=== PATIENT | female | born 1950 | race Caucasian/White ===

== ENCOUNTER 2018-05-20 13:15 | Inpatient (IN) | payer MEDICARE ==
[~2018-05-20] VITALS: Ht 160 cm; Wt 70.4 kg
[2018-05-20] MEDS ORDERED: LIDOCAINE VISCOUS 2% UD 15 ML UDC MM ONE (14:00)
[2018-05-20 14:05] LABS: BASOPHILS # (AUTO) 0.2 /CMM (0.0-0.2); BASOPHILS % (AUTO) 1.3 % (0.0-2.0); EOSINOPHILS % (AUTO) 0.3 % (0.0-6.0); HEMATOCRIT 42 % (33-45); HEMOGLOBIN 13.9 g/dL (11.5-14.8); LYMPHOCYTES # (AUTO) 1.5 /CMM (0.8-4.8); LYMPHOCYTES % (AUTO) 11.4 % (20.0-44.0); MEAN CORPUSCULAR HGB CONC 33 g/dl (31.0-36.0); MEAN CORPUSCULAR VOLUME 83 fL (82-100); MONOCYTES # (AUTO) 0.8 /CMM (0.1-1.30); MONOCYTES % (AUTO) 6.2 % (2.0-12.0); NEUTROPHILS # (AUTO) 10.4 /CMM (1.8-8.9); NEUTROPHILS % (AUTO) 80.8 % (43.0-81.0); PLATELET COUNT (AUTO) 349 /CMM (150-450); RED BLOOD CELL COUNT(AUTO) 5.11 MIL/uL (4.0-5.2); WHITE BLOOD COUNT (AUTO) 12.9 K/uL (4.3-11.0)
[2018-05-20] MEDS ORDERED: LIDOCAINE VISCOUS 2% UD 15 ML UDC ONE (14:13)
[2018-05-20 14:15] LABS: CALCIUM, SERUM 9.8 mg/dL (8.5-10.1); CREATININE 0.6 mg/dL (0.6-1.3); POTASSIUM 3.9 mmol/L (3.5-5.1)
[2018-05-20 14:20] LABS: ALBUMIN 3.7 g/dL (3.4-5.0); BILIRUBIN,DIRECT 0.2 mg/dL (0.0-0.2); BILIRUBIN,TOTAL 0.5 mg/dL (0.2-1.0); TOTAL PROTEIN, SERUM 7.6 g/dL (6.4-8.2)
[2018-05-20] MEDS ORDERED: AMIN30LI27 GT (16:18)
[2018-05-20] MEDS ORDERED: METO-295 GT (16:18)
[2018-05-20] MEDS ORDERED: SCOP1PAT17 TD (16:18)
[2018-05-20] MEDS ORDERED: CHOL4PAC4 GT (16:18)
[2018-05-20] MEDS ORDERED: LACT-96 GT (16:18)
[2018-05-20] MEDS ORDERED: LACT1CAP7 GT (16:18)
[2018-05-20] MEDS ORDERED: BISA10SU61 RC (16:18)
[2018-05-20] MEDS ORDERED: LEVE100S GT (16:18)
[2018-05-20] MEDS ORDERED: ALBU2.5V38 IH ×2 (16:18)
[2018-05-20] MEDS ORDERED: ACET325T53 GT ×2 (16:18)
[2018-05-20] MEDS ORDERED: MAGN400O6 GT (16:18)
[2018-05-20] MEDS ORDERED: DEXT15DR6 EACHEYE (16:18)
[2018-05-20] MEDS ORDERED: CRAN3875 GT (16:18)
[2018-05-20] MEDS ORDERED: ACET-73 GT (16:18)
[2018-05-20] MEDS ORDERED: ASCO500T9 GT (16:18)
[2018-05-20] MEDS ORDERED: NA P133E RC (16:18)
[2018-05-20] MEDS ORDERED: CHLO473M3 MM (16:18)
[2018-05-20] MEDS ORDERED: IPRA0.2S9 IH ×2 (16:18)
[2018-05-20] MEDS ORDERED: LANS30CA54 GT (16:18)
[2018-05-20] MEDS ORDERED: SENN-168 GT (16:18)
[2018-05-20] MEDS ORDERED: MULT1TAB73 GT (16:18)
[2018-05-20] MEDS ORDERED: IV NS 0.9% 1,000 ML BAG IV PRN (16:30)
[2018-05-20 17:00] VITALS: BP 120/73
[2018-05-20] MEDS ORDERED: SCOPOLAMINE HBR 1 EA PATCH.TD72 TD SCH (18:30)
[2018-05-20] MEDS ORDERED: IPRATROPIUM NEB FS 0.5 MG/2.5 ML AMPUL.NEB IH PRN (18:30)
[2018-05-20] MEDS ORDERED: ACETAMINOPHEN LIQUID 325 MG/10.1 ML UDC GT PRN ×2 (18:30)
[2018-05-20] MEDS ORDERED: NA PHOS,M-B/NA PHOS,DI-BA 1 EA ENEMA RC PRN (18:30)
[2018-05-20] MEDS ORDERED: MAGNESIUM HYDROXIDE 30 ML UDC GT PRN (18:30)
[2018-05-20] MEDS ORDERED: METOCLOPRAMIDE HCL 10 MG TABLET GT PRN (18:30)
[2018-05-20] MEDS ORDERED: BISACODYL SUPP (10 MG) 10 MG/SUPP.RECT SUPP.RECT RC PRN (18:30)
[2018-05-20] MEDS: ALBUTEROL FS 2.5 MG/0.5 ML VIAL.NEB NEB SCH (19:30)
[2018-05-20] MEDS ORDERED: ALBUTEROL FS 2.5 MG/0.5 ML VIAL.NEB NEB PRN (19:30)
[2018-05-20] MEDS: IPRATROPIUM NEB FS 0.5 MG/2.5 ML AMPUL.NEB IH SCH (19:30)
[2018-05-20 20:00] VITALS: BP 114/84
[2018-05-20] MEDS ORDERED: IV NS 0.9% 1,000 ML BAG IV SCH (20:00)
[2018-05-20] MEDS: POLYVINYL ALCOHOL 15 ML BOTTLE EACHEYE SCH ×2 (20:09→22:22)
[2018-05-20] MEDS ORDERED: LIDOCAINE VISCOUS 2% UD 15 ML UDC MM SCH (21:00)
[2018-05-20] MEDS: SENNOSIDES 8.6 MG TABLET GT SCH (22:00)
[2018-05-20] MEDS: CHOLESTYRAMINE/ASPARTAME 4 G/PKT PACKET GT SCH (22:23)
[2018-05-20] MEDS: CHLORHEXIDINE GLUCONATE 15 ML UDC MM SCH (22:23)
[2018-05-20] MEDS: LIDOCAINE VISCOUS 2% UD 15 ML UDC MM SCH (22:23)
[2018-05-21] VITALS: BP 110/77
[2018-05-21] MEDS: IPRATROPIUM NEB FS 0.5 MG/2.5 ML AMPUL.NEB IH SCH ×4 (01:30→19:30)
[2018-05-21] MEDS: ALBUTEROL FS 2.5 MG/0.5 ML VIAL.NEB NEB SCH ×4 (01:30→19:30)
[2018-05-21] MEDS: IV NS 0.9% 1,000 ML IV PRN ×2 (03:49→17:11)
[2018-05-21 08:00] VITALS: BP 107/63
[2018-05-21] MEDS: LIDOCAINE VISCOUS 2% UD 15 ML UDC MM SCH ×4 (08:47→21:57)
[2018-05-21] MEDS: PANTOPRAZOLE 40 MG/PACK PACK GT SCH (08:47)
[2018-05-21] MEDS: LACTOBACILLUS RHAMNOSUS GG 1 EACH CAP.SPRINK PO SCH (08:47)
[2018-05-21] MEDS: LEVETIRACETAM SOL (5 ML) 100 MG/ML UDC GT SCH (08:47)
[2018-05-21] MEDS: CHLORHEXIDINE GLUCONATE 15 ML UDC MM SCH ×2 (08:47→21:57)
[2018-05-21] MEDS: ASCORBIC ACID 500 MG TABLET GT SCH (08:47)
[2018-05-21] MEDS: MULTIVIT W/MINERALS 1 TAB TABLET PO SCH (08:47)
[2018-05-21] MEDS: PROSOURCE / PROSTAT (PYXIS) 30 ML UDC GT SCH ×2 (08:52→17:09)
[2018-05-21] MEDS: CHOLESTYRAMINE/ASPARTAME 4 G/PKT PACKET GT SCH ×2 (08:53→21:57)
[2018-05-21] MEDS: POLYVINYL ALCOHOL 15 ML BOTTLE EACHEYE SCH ×4 (08:53→21:57)
[2018-05-21] MEDS: ENSURE ENLIVE 237 ML LIQUID (VANILLA) PO SCH ×3 (08:53→17:09)
[2018-05-21] MEDS: [UNRECOGNIZED DRUG - OTHER] DT SCH ×3 (13:19→21:56)
[2018-05-21 13:27] LABS: BASOPHILS % (AUTO) 0.3 % (0.0-2.0); EOSINOPHILS % (AUTO) 0.4 % (0.0-6.0); HEMATOCRIT 38 % (33-45); HEMOGLOBIN 12.4 g/dL (11.5-14.8); LYMPHOCYTES # (AUTO) 1.7 /CMM (0.8-4.8); LYMPHOCYTES % (AUTO) 22.4 % (20.0-44.0); MEAN CORPUSCULAR HGB CONC 33 g/dl (31.0-36.0); MEAN CORPUSCULAR VOLUME 84 fL (82-100); MONOCYTES # (AUTO) 0.5 /CMM (0.1-1.30); MONOCYTES % (AUTO) 6.3 % (2.0-12.0); NEUTROPHILS # (AUTO) 5.5 /CMM (1.8-8.9); NEUTROPHILS % (AUTO) 70.6 % (43.0-81.0); PLATELET COUNT (AUTO) 327 /CMM (150-450); RED BLOOD CELL COUNT(AUTO) 4.57 MIL/uL (4.0-5.2); WHITE BLOOD COUNT (AUTO) 7.7 K/uL (4.3-11.0)
[2018-05-21 13:43] LABS: ALBUMIN 3.3 g/dL (3.4-5.0); BILIRUBIN,TOTAL 0.6 mg/dL (0.2-1.0); CALCIUM, SERUM 9.3 mg/dL (8.5-10.1); CREATININE 0.5 mg/dL (0.6-1.3); MAGNESIUM 1.8 mg/dL (1.8-2.4); PHOSPHORUS 3.9 mg/dL (2.5-4.9); POTASSIUM 3.7 mmol/L (3.5-5.1); TOTAL PROTEIN, SERUM 6.8 g/dL (6.4-8.2)
[2018-05-21 16:00] VITALS: BP 122/62
[2018-05-21 16:08] VITALS: BP 122/62
[2018-05-21 20:53] VITALS: BP 106/59
[2018-05-21] MEDS: SENNOSIDES 8.6 MG TABLET GT SCH (22:00)
[2018-05-22] MEDS: IPRATROPIUM NEB FS 0.5 MG/2.5 ML AMPUL.NEB IH SCH ×3 (01:30→13:15)
[2018-05-22] MEDS: ALBUTEROL FS 2.5 MG/0.5 ML VIAL.NEB NEB SCH ×3 (01:30→13:15)
[2018-05-22 08:00] VITALS: BP 123/70
[2018-05-22 08:11] LABS: BASOPHILS # (AUTO) 0.1 /CMM (0.0-0.2); BASOPHILS % (AUTO) 1.4 % (0.0-2.0); EOSINOPHILS % (AUTO) 0.5 % (0.0-6.0); HEMATOCRIT 37 % (33-45); LYMPHOCYTES # (AUTO) 1.4 /CMM (0.8-4.8); MEAN CORPUSCULAR HGB CONC 32 g/dl (31.0-36.0); MEAN CORPUSCULAR VOLUME 84 fL (82-100); MONOCYTES # (AUTO) 0.5 /CMM (0.1-1.30); MONOCYTES % (AUTO) 7.2 % (2.0-12.0); NEUTROPHILS # (AUTO) 4.9 /CMM (1.8-8.9); NEUTROPHILS % (AUTO) 70.9 % (43.0-81.0); PLATELET COUNT (AUTO) 289 /CMM (150-450); RED BLOOD CELL COUNT(AUTO) 4.41 MIL/uL (4.0-5.2); WHITE BLOOD COUNT (AUTO) 6.9 K/uL (4.3-11.0)
[2018-05-22] MEDS: LIDOCAINE VISCOUS 2% UD 15 ML UDC MM SCH ×2 (08:21→11:56)
[2018-05-22] MEDS: [UNRECOGNIZED DRUG - OTHER] DT SCH ×2 (08:24→12:10)
[2018-05-22 08:25] LABS: ALBUMIN 3.3 g/dL (3.4-5.0); BILIRUBIN,TOTAL 0.5 mg/dL (0.2-1.0); CALCIUM, SERUM 9.5 mg/dL (8.5-10.1); CREATININE 0.5 mg/dL (0.6-1.3); MAGNESIUM 1.9 mg/dL (1.8-2.4); PHOSPHORUS 3.5 mg/dL (2.5-4.9); POTASSIUM 3.4 mmol/L (3.5-5.1); TOTAL PROTEIN, SERUM 6.8 g/dL (6.4-8.2)
[2018-05-22] MEDS: MULTIVIT W/MINERALS 1 TAB TABLET PO SCH (08:25)
[2018-05-22] MEDS: POLYVINYL ALCOHOL 15 ML BOTTLE EACHEYE SCH ×2 (08:25→12:09)
[2018-05-22] MEDS: ENSURE ENLIVE 237 ML LIQUID (VANILLA) PO SCH ×2 (08:25→12:09)
[2018-05-22] MEDS: LACTOBACILLUS RHAMNOSUS GG 1 EACH CAP.SPRINK PO SCH (08:25)
[2018-05-22] MEDS: LEVETIRACETAM SOL (5 ML) 100 MG/ML UDC GT SCH (08:25)
[2018-05-22] MEDS: ASCORBIC ACID 500 MG TABLET GT SCH (08:29)
[2018-05-22] MEDS: CHLORHEXIDINE GLUCONATE 15 ML UDC MM SCH (08:29)
[2018-05-22] MEDS: CHOLESTYRAMINE/ASPARTAME 4 G/PKT PACKET GT SCH (08:30)
[2018-05-22] MEDS: PANTOPRAZOLE 40 MG/PACK PACK GT SCH (08:30)
[2018-05-22] MEDS: PROSOURCE / PROSTAT (PYXIS) 30 ML UDC GT SCH (08:43)
[2018-05-22] MEDS: POTASSIUM CHLORIDE 20 MEQ TAB.PRT.SR PO SCH (10:00)
== END 2018-05-22 15:43 | DRG 159 ==
LOC: ER 13:26 → TELE 16:03 → MED 05-21 10:30
PROVIDERS: ADMIT Internal Medicine Nephrology; ATTEND Internal Medicine Nephrology
DX: K12.0 Recurrent oral aphthae (principal); R29.810 Facial weakness; R47.02 Dysphasia; Z87.820 Personal history of traumatic brain injury; V89.2XXS Person injured in unspecified motor-vehicle accident, traffic, sequela; D72.829 Elevated white blood cell count, unspecified; G40.909 Epilepsy, unspecified, not intractable, without status epilepticus
CPT/HCPCS: 36415; 70450-TC; 71045-TC; 80048-TC; 80053-TC; 80076-TC; 83605-TC; 83690-TC; 83735-TC; 84100-TC; 85025-TC; 87040-TC; 87081-TC; 97530-TC; G0378; J1953; J7030